=== PATIENT | female | born 1970 | race Caucasian/White ===

== ENCOUNTER 2017-01-24 09:30 | Emergency (ER) | payer OTHER ==
[~2017-01-24] VITALS: Ht 157.5 cm; Wt 59.4 kg
[2017-01-24 12:04] VITALS: BP 126/76
== END 2017-01-24 12:45 | disposition home or self-care (01) ==
LOC: ED 09:30
DX: S13.4XXA Sprain of ligaments of cervical spine, initial encounter (principal); Z79.899 Other long term (current) drug therapy; V89.2XXA Person injured in unspecified motor-vehicle accident, traffic, initial encounter; Y93.89 Activity, other specified; Y92.89 Other specified places as the place of occurrence of the external cause; Y99.8 Other external cause status

== ENCOUNTER 2017-10-17 16:37 | Emergency (ER) | payer SELFPAY ==
[2017-10-17 16:41] VITALS: BP 127/77
== END 2017-10-17 18:37 | disposition home or self-care (01) ==
LOC: ED 16:37
DX: B34.9 Viral infection, unspecified (principal); F17.210 Nicotine dependence, cigarettes, uncomplicated

== ENCOUNTER 2019-02-14 10:14 | Emergency (ER) | payer MEDICAID ==
[~2019-02-14] VITALS: Ht 157.5 cm; Wt 57.6 kg
[2019-02-14 10:16] VITALS: Ht 157.5 cm; Wt 57.6 kg
[2019-02-14 14:18] VITALS: BP 140/86
== END 2019-02-14 14:18 | disposition home or self-care (01) ==
LOC: ED 10:14
DX: M54.12 Radiculopathy, cervical region (principal); F17.210 Nicotine dependence, cigarettes, uncomplicated; Z98.890 Other specified postprocedural states; Z90.89 Acquired absence of other organs
CPT/HCPCS: 99406; J1885